=== PATIENT | female | born 1950 | race Caucasian/White ===

== ENCOUNTER 2018-09-23 03:12 | Inpatient (IN) | payer MEDICARE, MEDICAID ==
[~2018-09-23] VITALS: Ht 160 cm; Wt 83.1 kg
[2018-09-23] MEDS ORDERED: MORPHINE SULFATE 4 MG/ML CPJ (NOT FOR IM USE) IV STA (03:39)
[2018-09-23] MEDS ORDERED: ONDANSETRON HCL 4MG/2ML INJ IV STA (03:39)
[2018-09-23] MEDS ORDERED: SODIUM CHLORIDE 0.9% 1,000 ML IV ONE (03:39)
[2018-09-23 04:09] LABS: HEMATOCRIT. 43.2 % (36.0-48.0); HEMOGLOBIN. 14.5 g/dL (12.0-16.0); MEAN CORPUSCULAR HEMOGLOBIN 31.1 pg (28.0-32.0); MEAN PLATELET VOLUME 8.6 fl (7.4-10.4); PLATELET 150 x1000/uL (130-400); RED BLOOD CELL COUNT 4.65 mill/uL (4.2-5.4); RED CELL DISTRIBUTION WIDTH 13.7 % (11.6-14.6)
[2018-09-23 04:17] LABS: CHLORIDE 103 mEq/L (98-107)
[2018-09-23 04:51] LABS: PLATELET ESTIMATE NORMAL
[2018-09-23] MEDS ORDERED: IOHEXOL-300 100 ML BOTTLE ONE (06:08)
[2018-09-23] MEDS ORDERED: GUAIFENESIN 200MG/10ML SUGAR FREE UDC PO PRN (07:30)
[2018-09-23] MEDS ORDERED: ENOXAPARIN 40MG/0.4ML SYR SUBCUT SCH (07:30)
[2018-09-23] MEDS ORDERED: ACETAMINOPHEN 325MG TABLET PO PRN (07:30)
[2018-09-23] MEDS ORDERED: MAGNESIUM/ALUMINUM HYDROXIDE/SIMETHICONE 30ML UDC PO PRN (07:30)
[2018-09-23] MEDS ORDERED: CLONIDINE 0.1MG TABLET PO PRN (07:30)
[2018-09-23] MEDS ORDERED: ONDANSETRON HCL 4MG/2ML INJ IV PRN (07:30)
[2018-09-23] MEDS ORDERED: IPRATROPIUM/ALBUTEROL 0.5-3(2.5)MG/3ML NEB INH PRN (07:30)
[2018-09-23] MEDS ORDERED: DIPHENHYDRAMINE 50MG/ML VIAL IV PRN (07:30)
[2018-09-23] MEDS ORDERED: HYDROCODONE/ACETAMINOPHEN 5/325MG TABLET PO PRN (07:30)
[2018-09-23] MEDS ORDERED: DOCUSATE SODIUM 100MG CAPSULE PO PRN (07:30)
[2018-09-23 07:52] LABS: PHOSPHORUS 3.2 mg/dL (2.5-4.9)
[2018-09-23] MEDS ORDERED: IOHEXOL-350 100 ML BOTTLE ONE (08:54)
[2018-09-23 14:48] LABS: CREATINE KINASE 78 IU/L (26-192)
[2018-09-23 16:22] LABS: HEPATITIS B SURFACE ANTIGEN NEGATIVE
[2018-09-23 16:52] LABS: HEPATITIS A AB IGM NEGATIVE (NEGATIVE)
[2018-09-23 22:30] VITALS: BP 140/70
[2018-09-23 23:00] VITALS: BP 140/70
[2018-09-23] MEDS ORDERED: DEXTROSE 50% WATER 50ML SYRINGE IV PRN (23:45)
[2018-09-24] MEDS: APIXABAN 5 MG TABLET PO SCH ×2 (00:06→08:53)
[2018-09-24] MEDS: DILTIAZEM HCL 30MG TABLET PO SCH ×2 (01:09→10:00)
[2018-09-24 01:48] LABS: CREATINE KINASE 69 IU/L (26-192)
[2018-09-24 04:00] VITALS: BP_SYST 121; BP_DIAS 64; BP_DIAS 68
[2018-09-24] MEDS: BLOOD SUGAR DIAGNOSTIC STRIP TEST SCH ×4 (06:36→20:20)
[2018-09-24 07:16] LABS: BASOPHILS % 0.3 % (0.0-2.0); EOSINOPHILS % 1.2 % (0.0-5.0); HEMATOCRIT. 38.6 % (36.0-48.0); LYMPHOCYTES % 25.9 % (20.0-50.0); MEAN CORPUSCULAR HEMOGLOBIN 31.5 pg (28.0-32.0); MEAN CORPUSCULAR VOLUME 93.2 fL (81.0-99.0); MEAN PLATELET VOLUME 8.6 fl (7.4-10.4); MONOCYTES % 8.7 % (2.0-8.0); NEUTROPHILS % 63.9 % (40.0-76.0); PLATELET 156 x1000/uL (130-400); RED BLOOD CELL COUNT 4.14 mill/uL (4.2-5.4); RED CELL DISTRIBUTION WIDTH 13.7 % (11.6-14.6)
[2018-09-24 08:00] VITALS: BP 133/77
[2018-09-24] MEDS: INSULIN LISPRO 100 UNITS/ML SUBCUT SCH ×3 (08:10→20:19)
[2018-09-24 10:13] LABS: HIV SCREEN 4G Non Reactive (Non Reactive)
[2018-09-24 10:48] LABS: CHLORIDE 108 mEq/L (98-107)
[2018-09-24 10:57] LABS: LDL CHOLESTEROL 85 mg/dL (5-100)
[2018-09-24 10:58] LABS: HDL CHOLESTEROL 58 mg/dL (40-59)
[2018-09-24 12:00] VITALS: BP 128/79
[2018-09-24 16:00] VITALS: BP 118/76
[2018-09-24 20:13] VITALS: BP 126/68
[2018-09-25] VITALS: BP 120/72
[2018-09-25] MEDS: DILTIAZEM HCL 30MG TABLET PO SCH ×3 (02:00→09:02)
[2018-09-25 04:00] VITALS: BP 128/79
[2018-09-25] MEDS: BLOOD SUGAR DIAGNOSTIC STRIP TEST SCH ×2 (06:36→12:40)
[2018-09-25 07:47] LABS: BASOPHILS % 0.5 % (0.0-2.0); EOSINOPHILS % 0.9 % (0.0-5.0); HEMATOCRIT. 40.9 % (36.0-48.0); HEMOGLOBIN. 13.9 g/dL (12.0-16.0); LYMPHOCYTES % 15.8 % (20.0-50.0); MEAN CORPUSCULAR HEMOGLOBIN 31.7 pg (28.0-32.0); MEAN CORPUSCULAR VOLUME 93.1 fL (81.0-99.0); MEAN PLATELET VOLUME 8.5 fl (7.4-10.4); MONOCYTES % 8.7 % (2.0-8.0); NEUTROPHILS % 74.1 % (40.0-76.0); PLATELET 164 x1000/uL (130-400); RED CELL DISTRIBUTION WIDTH 13.3 % (11.6-14.6)
[2018-09-25] MEDS: INSULIN LISPRO 100 UNITS/ML SUBCUT SCH ×2 (07:54→13:10)
[2018-09-25 08:00] VITALS: BP 134/85
[2018-09-25 08:09] LABS: CHLORIDE 107 mEq/L (98-107)
[2018-09-25] MEDS: APIXABAN 5 MG TABLET PO SCH (09:03)
[2018-09-25 12:00] VITALS: BP 134/68
[2018-09-25] MEDS ORDERED: ATOR10TA69 PO (14:38)
[2018-09-25] MEDS ORDERED: APIX5TAB PO (14:40)
[2018-09-25] MEDS ORDERED: ALBU18HF2 IH (14:40)
[2018-09-25] MEDS ORDERED: BECL10.62 IH (14:41)
[2018-09-25 15:17] VITALS: BP 113/64
[2018-09-25 16:00] VITALS: BP 113/64
== END 2018-09-25 16:35 | disposition home or self-care (01) | DRG 74 ==
LOC: ER 03:12 → 7WST 05:43 → EDBEDREQ 05:47 → EDBEDREQTM 05:47 → ENRESERV 21:06
PROVIDERS: ADMIT Internal Medicine; ATTEND Internal Medicine
DX: M54.10 Radiculopathy, site unspecified (principal); R05 Cough; R07.89 Other chest pain; E66.9 Obesity, unspecified; E78.5 Hyperlipidemia, unspecified; I10 Essential (primary) hypertension; I48.2 Chronic atrial fibrillation; E78.00 Pure hypercholesterolemia, unspecified; I25.10 Atherosclerotic heart disease of native coronary artery without angina pectoris; M19.90 Unspecified osteoarthritis, unspecified site; H92.03 Otalgia, bilateral; I25.2 Old myocardial infarction; Z68.32 Body mass index [BMI] 32.0-32.9, adult
CPT/HCPCS: 36415; 71045; 71275; 74177; 76705; 80048; 80061; 82550; 82962; 83036; 83735; 84100; 84443; 84484; 85379; 86705; 86709; 86803; 87340; 87389; 93005; 93306; 93970; 96361; 96365; 96366; 96375; 97162; 97166; 99285; J2270; J2405; J7030; Q9967